=== PATIENT | male | born 1960 | race Caucasian/White ===

== ENCOUNTER 2022-06-19 11:26 | Emergency (ER) | payer MEDICARE ==
[2022-06-19] MEDS ORDERED: Morphine 4 MG/ML VIAL ONE (11:44)
[2022-06-19] MEDS ORDERED: Ondansetron PF 4 MG/2 ML Vial ONE (11:45)
[2022-06-19 12:05] LABS: #Lymphocytes 1.4 thou/uL (1.20-3.40); #Monocytes 0.5 thou/uL (0.11-0.59); %Basophils 0.2 % (0.0-1.0); %Eosinophils 0.6 % (0.0-10.0); %Lymphocytes 20.5 % (21.0-51.0); %Monocytes 6.8 % (0.0-10.0); %Neutrophils 71.9 % (42.0-75.0); Hemoglobin 12.6 g/dL (14.0-18.0); Mean Corpuscular HGB CONC 32.4 g/dL (32.0-36.0); Mean Corpuscular Hemoglobin 31.2 pg (27.0-31.0); Mean Corpuscular Volume 96.3 fl (78.0-98.0); Mean Platelet Volume 5.7 fL (7.4-10.4); Platelet Count 162 10x3/uL (130-400); RBC Distribution Width 11.9 % (11.5-14.5); Red Blood Cell (RBC) Count 4.04 mill/uL (4.70-6.10)
[2022-06-19 12:16] LABS: INR-International Normal Ratio 0.9; PTT 27.6 sec (22.9-36.1); Prothrombin Time 12.6 sec (12.0-14.7)
[2022-06-19] MEDS ORDERED: PROPOFOL 20 ML ONE (12:36)
[2022-06-19] MEDS ORDERED: Ketamine 50 MG/ML (10ML VIAL) ONE (12:36)
[2022-06-19 12:39] LABS: ALT (SGPT) 11 U/L (8-55); AST (SGOT) 17 U/L (5-34); Albumin 4.1 g/dL (3.4-4.8); Alkaline Phosphatase 115 U/L (40-110); Anion Gap 12 mmol/L (10-20); BUN (Urea Nitrogen) 16 mg/dL (8.4-25.7); Bilirubin, Total 0.5 mg/dL (0.2-1.2); Calc. Creatinine Clearance 0 mL/min (70-130); Calcium 9.1 mg/dL (7.8-10.44); Carbon Dioxide 26 mmol/L (23-31); Chloride 105 mmol/L (98-107); Estimated GFR 100; Globulin 2.9 g/dL (2.4-3.5); Glucose 108 mg/dL (80-115); Potassium 3.9 mmol/L (3.5-5.1); Sodium 138 mmol/L (136-145)
[2022-06-19] MEDS ORDERED: Ondansetron ODT 4 MG TAB ONE (14:05)
== END 2022-06-19 14:40 | disposition home or self-care (01) ==
LOC: ERS 11:26
DX: S73.015A Posterior dislocation of left hip, initial encounter (principal); W19.XXXA Unspecified fall, initial encounter
CPT/HCPCS: 27265; 36415; 72170; 80053; 85025; 85610; 85730; 96374; 96375; 99152; J2270; J2405; J2704; Q0162